=== PATIENT | male | born 1935 | race Caucasian/White ===

== ENCOUNTER → 2024-01-31 08:35 | Outpatient (REF) | payer MEDICARE, OTHER, SELFPAY ==
[2024-01-31 11:48] LABS: Hematocrit 33.2 % (39.0-52.0); Hemoglobin 11.7 g/dL (13.0-18.0); Mean Corp Hgb Conc. 35.2 g/dL (33.0-37.0); Mean Corpuscular Hgb 31.8 pg (27.0-31.0); Mean Corpuscular Volume 90.2 fL (80.0-94.0); Mean Platelet Volume 9.9 fL (7.4-10.4); Platelet Count 276 10^3/uL (130-400); Red Blood Cell Count 3.68 10^6/uL (4.70-6.10); Red Cell Dist. Width 13.4 % (11.5-14.5); White Blood Cell Count 5.5 10^3/uL (4.8-10.8)
[2024-01-31 12:17] LABS: Blood Urea Nitrogen 18 mg/dl (9-20); Calcium 9.5 mg/dl (8.4-10.2); Carbon Dioxide 27 mmol/L (22-30); Chloride 104 mmol/L (98-107); Glucose 101 mg/dl (70-99); Potassium 4.2 mmol/L (3.5-5.1); Sodium 135 mmol/L (135-145); eGFR > 60.00
[2024-01-31 12:42] LABS: PSA, Total - Diagnostic 0.13 ng/ml (0.0-4.0)
[2024-02-02 03:04] LABS: % Free Testosterone 1.5 % (1.6-2.9); Free Testosterone 40 pg/mL (47-244); Sex Hormone Binding Globulin 42 nmol/L (19-76); Total Testosterone 258 ng/dL (300-720)
== END ==
LOC: HWLAB 08:35
PROVIDERS: ATTENDING PHYSICIAN Specialist; FAMILY PHYSICIAN Family Medicine
DX: C61 Malignant neoplasm of prostate (principal); E29.1 Testicular hypofunction
CPT/HCPCS: 36415; 80048; 84153; 84270; 84402; 84403; 85027

== ENCOUNTER → 2024-02-22 19:25 | Outpatient (REF) | payer MEDICARE, OTHER, SELFPAY | LOC: MRI 3T 19:25 | PROVIDERS: ATTENDING PHYSICIAN Physical Medicine & Rehabilitation; FAMILY PHYSICIAN Family Medicine | DX: M54.50 Low back pain, unspecified (principal) | CPT/HCPCS: 72148 ==

== ENCOUNTER → 2024-05-05 08:40 | Outpatient (REF) | payer MEDICARE, OTHER, SELFPAY ==
[2024-05-05 13:44] LABS: PSA, Total - Diagnostic 0.12 ng/ml (0.0-4.0)
[2024-05-07 23:30] LABS: % Free Testosterone 1.4 % (1.6-2.9); Free Testosterone 16 pg/mL (47-244); Sex Hormone Binding Globulin 48 nmol/L (19-76); Total Testosterone 117 ng/dL (300-720)
== END ==
LOC: HWLAB 08:40
PROVIDERS: ATTENDING PHYSICIAN Family Medicine Geriatric Medicine; FAMILY PHYSICIAN Family Medicine
DX: C61 Malignant neoplasm of prostate (principal); Z79.818 Long term (current) use of other agents affecting estrogen receptors and estrogen levels
CPT/HCPCS: 36415; 84153; 84270; 84402; 84403

== ENCOUNTER → 2024-05-08 08:47 | Outpatient (REF) | payer MEDICARE, OTHER, SELFPAY | LOC: RAD 08:47 | PROVIDERS: ATTENDING PHYSICIAN Student in an Organized Health Care Education/Training Program | DX: M79.661 Pain in right lower leg (principal); M25.561 Pain in right knee | CPT/HCPCS: 73564; 93971 ==

== ENCOUNTER → 2024-05-13 10:46 | Outpatient (REF) | payer MEDICARE, OTHER, SELFPAY ==
[2024-05-13 12:01] LABS: % Basophils 0.6 % (0-2); % Eosinophils 2.7 % (0-6); % Immature Granulocytes 0.7 % (0-0.5); % Lymphocytes 17.5 % (20.5-51.1); % Monocytes 8.8 % (1.7-9.3); % Neutrophils 69.7 % (42.2-75.2); Absolute Eosinophils 0.2 10^3/uL (0-0.7); Absolute Immature Granulocytes 0.1 10^3/uL (0-0.05); Absolute Lymphocytes 1.2 10^3/uL (1.2-3.4); Absolute Monocytes 0.6 10^3/uL (0.1-0.6); Absolute Neutrophils 4.9 10^3/uL (1.4-6.5); Hematocrit 33.9 % (39.0-52.0); Hemoglobin 11.8 g/dL (13.0-18.0); Mean Corp Hgb Conc. 34.8 g/dL (33.0-37.0); Mean Corpuscular Hgb 31.5 pg (27.0-31.0); Mean Corpuscular Volume 90.4 fL (80.0-94.0); Mean Platelet Volume 9.7 fL (7.4-10.4); Nucleated Red Blood Cells % 0 % (-); Platelet Count 325 10^3/uL (130-400); Red Blood Cell Count 3.75 10^6/uL (4.70-6.10); Red Cell Dist. Width 13.2 % (11.5-14.5)
== END ==
LOC: HWLAB 10:46
PROVIDERS: ATTENDING PHYSICIAN Nurse Practitioner Adult Health; FAMILY PHYSICIAN Family Medicine
DX: I82.502 Chronic embolism and thrombosis of unspecified deep veins of left lower extremity (principal); D50.9 Iron deficiency anemia, unspecified
CPT/HCPCS: 36415; 85025

== ENCOUNTER 2024-05-14 02:59 | Emergency (ER) | payer MEDICARE, OTHER, SELFPAY ==
--- NOTE | 2024-05-14 03:14 | DOWNTIME ---
There was a [employer] Downtime on 05/14/2024 from 0100 to 05/14/2024 at 0252. Downtime documentation of patient's care, including medication administrations, has been reconciled in the electronic record per guidelines. Refer to the
patient's paper chart under the miscellaneous tab to see printed paper medication records and downtime forms.
[2024-05-14 03:23] VITALS: BP 180/80
--- NOTE | 2024-05-14 03:52 | ED.GENMED ---
History of Present Illness
<CYRUS De Los Santos - Last Filed: 05/14/24 05:36>
General
Chief Complaint: Nose Bleed
Time Seen by Provider: 05/14/24 03:52
History of Present Illness
History of Present Illness:
Pt is a 75 y/o male with PMHx of HTN, HLD, and prostate CA presenting for a nosebleed. He states he was started on Eliquis on Sunday (05/09) due to a DVT in his right leg. He states the following day he got a nose bleed from his right nares. He
states he has a total of 3 nose bleeds between Sunday (05/10) and Sunday (05/11) that last around 45 minutes each. He states he held pressure the entire time and they eventually stopped. He states he discontinued his Eliquis on his own due to these
bleeds. He saw his PCP yesterday and they restarted his Eliquis. He states that he developed another nosebleed from his right nares 45 minutes ago. He states this time it is bleeding more than the previous episodes. He states it is bright red blood
and clots are coming out. He states he just began to develop some weakness, dizziness, and nausea. He denies any trauma to the nose. He denies any headaches, fever, cough, SOB, or chest pain.
Past History
<CYRUS De Los Santos - Last Filed: 05/14/24 05:36>
Past History
ED Past Medical History: Cancer (prostate), GERD, Hypercholesterolemia and Other (Gallstones)
ED Past Surgical History: Other (The Patient has had bilateral shoulder surgery)
Social History
Tobacco: Former smoker (quit 50 yrs ago)
Alcohol: Daily (one glass wine)
Drug: None
Personal:
Living: with family
Employment: Retired
Family History
Family History: Other (Noncontributory)
Phy Exam
<CYRUS De Los Santos - Last Filed: 05/14/24 05:36>
Physical Exam
Physical Exam:
GENERAL: Alert, agitated, in mild distress
Nose: Bright red blood coming from right nostril.
EYE: erythematous conjunctiva. pupils equal and reactive
Throat: Airway intact, no exudates
NECK: Supple, no significant adenopathy.
CARDIAC: Regular rate and rhythm .
LUNGS: Clear breath sounds bilaterally, no acute respiratory distress, no wheezes/rales/rhonchi
ABDOMEN: Soft, nondistended, nontender, no cvat
NEUROLOGICAL: Alert and oriented, no focal neuro deficits
SKIN: Warm and dry, skin intact.
MUSCULOSKELETAL: No edema, well perfused.
PSYCH: Normal and appropriate interaction.
Course
<Shade Diaz [facility] - Last Filed: 05/14/24 05:36>
Vital Signs
Initial and Last Documented VS:
Initial Vital Signs
Pulse Ox
98
05/14/24 03:19
Last Documented Vital Signs
Pulse Resp BP Pulse Ox
57 20 150/80 98
05/14/24 04:59 05/14/24 04:59 05/14/24 04:59 05/14/24 04:59
<Cristopher Polanco DO - Last Filed: 05/14/24 05:40>
Vital Signs
Initial and Last Documented VS:
Initial Vital Signs
Pulse Ox
98
05/14/24 03:19
Last Documented Vital Signs
Pulse Resp BP Pulse Ox
57 20 150/80 98
05/14/24 04:59 05/14/24 04:59 05/14/24 04:59 05/14/24 04:59
Procedures
<Shade Diaz [facility] - Last Filed: 05/14/24 05:36>
Nosebleed
Drug treatment: Epinephrine
Treatment: local pressure applied, Silver nitrate cautery and Merocel packing
Post treatment bleeding: none- good control
<CYRUS De Los Santos - Last Filed: 05/14/24 05:36>
*Pulse Oximetry
Patient hypoxic: no
*EKG
Interpreted by ED Provider?: NA
*Underwriting Technician Interpretation
Rate: Underwriting Technician- N/A
*Critical Care Note
Total Time (30-74mins, 75-104mins- exclusive of procedures): Not Applicable
<CYRUS De Los Santos - Last Filed: 05/14/24 05:36>
Update Note
Update Note:
05/14/24 0400am: Patient asleep resting comfortably after epinephrine nasal spray and merocel sponge placed in right nostril. Merocel with small amount of blood present
05/14/24 0530am: Packing removed, site of bleed identified and cauterized
ED Attending Note
<CYRUS De Los Santos - Last Filed: 05/14/24 05:36>
-
Portions of this chart may have been created with voice recognition software.� Occasional wrong word or��sound alike� substitutions may have occurred due to the inherent limitations of voice recognition software.
<Cristopher Polanco DO - Last Filed: 05/14/24 05:40>
ED Attending Note
Patient seen and examined by attending physician: Yes
I performed the substantive portion of visit, reviewed & personally made and approve the management plan that is documented in note by myself or MEGHAN.: Yes
ED Attending Note:
Pleasant 75-year-old male presents to the Emergency Department with nosebleed. He was started on Eliquis on this past Sunday due to a DVT in his right leg. Patient states that he had 3 nosebleeds in the following days. He stopped his Eliquis on
his own due to the increased frequency of nosebleeding. He was seen by his primary care provider on Sunday who restarted his Eliquis. Patient developed a nosebleed this evening. Denies any trauma. Patient was seen in conjunction with the PA
student. I have reviewed and agree with the history and treatment plan presented. On my independent physical exam, patient is awake, alert, and oriented x3, in minimal acute distress. No respiratory distress. No active bleeding after direct
pressure. Using 1 cc of epinephrine atomized in the right nostril and a Merocel, bleeding has stopped. Will continue to observe.
Discharge Plan
Departure
Patient Disposition: Home (Routine Discharge)
Date of Disposition: 05/14/24
Time of Disposition: 05:39
Patient with high blood pressure during this ER visit?: Yes
Discharge Problem:
Acute anterior epistaxis
Instructions: Nosebleeds (DC), BLOOD PRESSURE
Prescriptions:
No Action
omeprazole 20 MG capsule,delayed release(DR/EC)
20 mg PO Q48H
tamsulosin 0.4 MG capsule
0.4 mg PO DAILY
losartan 50 MG tablet
100 mg PO DAILY
metoprolol succinate 50 MG tablet extended release 24 hr
50 mg PO DAILY
vitamin C21-foqty acid
500 mg PO DAILY
rosuvastatin [Crestor] 5 mg Tablet
5 mg PO HS
cholecalciferol (vitamin D3) [Vitamin D3] 25 mcg (1,000 unit) Tablet
25 mcg PO DAILY
Referrals:
UNKNOWN - PT DOES,NOT KNOW [Family Provider] -
Ang Burgess MD [Active] - Next open appointment
Activity Restrictions/Additional Instructions:
Please discuss resumption of Eliquis with your physician.
It was a pleasure meeting you and taking part in your care. We hope for your continued healing and wellness.
Please read discharge instructions in their entirety. However, they are for general education and may not describe your exact diagnosis at discharge. Information on your ER visit and medical conditions were discussed with you along with appropriate
follow up information...
If indicated, please take your medications as instructed and indicated on discharge paperwork.
Please schedule a follow up appointment as directed. Call to schedule an appointment
Please return to the emergency department with ANY change in, persisting, or worsening of symptoms. If any of your symptoms do not improve, or persist, or become more severe within 6-12 hours, please return to the emergency department for further
care.
Please return to the emergency department if you develop a headache, neck pain/stiffness, fever greater than 100.4F, chest pain, shortness of breath, persistent nausea, vomiting, slurred speech, difficulty walking, numbness/tingling, weakness, signs
of infection or any other symptoms that are worrisome to you.
If you have any questions or concerns please do not hesitate to call the Hospital at or E-mail me directly at [email or web address]
Interventions
Interventions:
*Risk Screen - Suicide Last Done: 05/14/24 02:45
*General Assessment Last Done: 05/14/24 02:45
*Neglect/Abuse Screening Last Done: 05/14/24 02:45
ED- Fall Risk Assessment Last Done: 05/14/24 02:45
*ED COVID-19 Vaccine History Last Done: 05/14/24 02:45
ED-EENT Assessment Last Done: 05/14/24 03:19
Discharge Date and Time
Print Language: CZECH
[2024-05-14 04:59] VITALS: BP 150/80
[2024-05-14 05:56] VITALS: BP 147/73
== END 2024-05-14 05:59 | disposition home or self-care (01) ==
LOC: EMR 02:59
PROVIDERS: EMERGENCY PHYSICIAN Student in an Organized Health Care Education/Training Program
DX: R04.0 Epistaxis (principal); R42 Dizziness and giddiness; R53.1 Weakness; R11.0 Nausea; I82.401 Acute embolism and thrombosis of unspecified deep veins of right lower extremity; K21.9 Gastro-esophageal reflux disease without esophagitis; E78.00 Pure hypercholesterolemia, unspecified; I10 Essential (primary) hypertension; Z85.46 Personal history of malignant neoplasm of prostate; Z87.891 Personal history of nicotine dependence
CPT/HCPCS: 99283; 30901

== ENCOUNTER → 2024-07-21 09:04 | Outpatient (REF) | payer MEDICARE, OTHER, SELFPAY ==
[2024-07-21 12:08] LABS: % Basophils 0.5 % (0-2); % Eosinophils 2.6 % (0-6); % Immature Granulocytes 0.6 % (0-0.5); % Lymphocytes 18.3 % (20.5-51.1); % Monocytes 8.8 % (1.7-9.3); % Neutrophils 69.2 % (42.2-75.2); Absolute Eosinophils 0.2 10^3/uL (0-0.7); Absolute Lymphocytes 1.1 10^3/uL (1.2-3.4); Absolute Monocytes 0.6 10^3/uL (0.1-0.6); Absolute Neutrophils 4.3 10^3/uL (1.4-6.5); Hematocrit 35.6 % (39.0-52.0); Hemoglobin 12.1 g/dL (13.0-18.0); Mean Corpuscular Hgb 31.2 pg (27.0-31.0); Mean Corpuscular Volume 91.8 fL (80.0-94.0); Nucleated Red Blood Cells % 0 % (-); Platelet Count 364 10^3/uL (130-400); Red Blood Cell Count 3.88 10^6/uL (4.70-6.10); Red Cell Dist. Width 13.3 % (11.5-14.5); White Blood Cell Count 6.2 10^3/uL (4.8-10.8)
[2024-07-21 12:17] LABS: Iron 105 ug/dl (49-181)
[2024-07-21 12:26] LABS: Percent Saturation 36 % (20-50); Total Iron Binding Capacity 285 ug/dl (261-462)
[2024-07-21 12:50] LABS: Ferritin 83.4 ng/ml (17.9-464.0)
== END ==
LOC: HWLAB 09:04
PROVIDERS: ATTENDING PHYSICIAN Internal Medicine Hematology & Oncology; FAMILY PHYSICIAN Family Medicine
DX: I82.502 Chronic embolism and thrombosis of unspecified deep veins of left lower extremity (principal); D50.9 Iron deficiency anemia, unspecified
CPT/HCPCS: 36415; 82728; 83540; 83550; 85025

== ENCOUNTER → 2024-08-07 08:44 | Outpatient (REF) | payer MEDICARE, OTHER, SELFPAY ==
[2024-08-07 12:39] LABS: PSA, Total - Diagnostic < 0.06 ng/ml (0.0-4.0)
[2024-08-09 18:01] LABS: % Free Testosterone <1.4 % (1.6-2.9); Free Testosterone <1 pg/mL (47-244); Sex Hormone Binding Globulin 42 nmol/L (19-76); Total Testosterone <3 ng/dL (300-720)
== END ==
LOC: HWLAB 08:44
PROVIDERS: ATTENDING PHYSICIAN Specialist; FAMILY PHYSICIAN Family Medicine
DX: C61 Malignant neoplasm of prostate (principal); R35.1 Nocturia; E29.1 Testicular hypofunction
CPT/HCPCS: 36415; 84153; 84270; 84402; 84403

== ENCOUNTER → 2024-08-12 08:21 | Outpatient (REF) | payer MEDICARE, OTHER, SELFPAY ==
[2024-08-12 13:11] LABS: D-Dimer 0.32 ug/mlFEU (0.00-0.50)
== END ==
LOC: HWLAB 08:21
PROVIDERS: ATTENDING PHYSICIAN Nurse Practitioner Adult Health; FAMILY PHYSICIAN Family Medicine
DX: I82.502 Chronic embolism and thrombosis of unspecified deep veins of left lower extremity (principal); D50.9 Iron deficiency anemia, unspecified
CPT/HCPCS: 36415; 85379

== ENCOUNTER 2024-08-25 17:28 | Emergency (ER) | payer MEDICARE, OTHER, SELFPAY ==
[2024-08-25 17:29] VITALS: BP 165/73
--- NOTE | 2024-08-25 18:22 | ED.GENMED ---
History of Present Illness
General
Chief Complaint: Nose Bleed
Source: patient
Exam Limitations: none
Time Seen by Provider: 08/25/24 18:07
Nursing documentation reviewed up to this point in time: agreed with
History of Present Illness
History of Present Illness:
89-year-old male with history of DVT on Eliquis presents with a nosebleed. He's had several previous nosebleeds and has been cauterized several times. He sees ENT Dr. Bolden as needed. Denies lightheadedness, denies nausea. No trauma.
Past History
Past History
ED Past Medical History: Cancer (prostate), GERD, HTN, Hypercholesterolemia and Other (Gallstones)
ED Past Surgical History: Other (The Patient has had bilateral shoulder surgery)
Social History
Tobacco: Former smoker (quit 50 yrs ago)
Alcohol: Daily (one glass wine)
Drug: None
Personal:
Living: with family
Employment: Retired
Family History
Family History: Other (Noncontributory)
Review of Systems
Review of Systems
Allergies reviewed?: Yes
All Other Systems: ROS reviewed and negative except as documented in HPI and ROS
Constitutional: Denies fever or chills
EENT: Reports other (right side nose bleed)
Respiratory: Denies trouble breathing
ABD/GI: Denies nausea or vomiting
Skin: Reports no symptoms
Phy Exam
Physical Exam
Physical Exam:
GENERAL: No acute distress. A&Ox3.
CONSTITUTIONAL: Afebrile.
EYES: PERRL, conjunctivae normal
ENMT: moist mucus membranes, Pharynx nl, no blood. Dried blood in right nares, no active bleeding currently
RESPIRATORY: Regular respirations, nonlabored, lungs clear.
CARDIOVASCULAR: Regular rate and rhythm, no murmurs, no rubs.
GI: Soft, nontender
MUSCULOSKELETAL: Moves with ease. Well perfused.
SKIN: Warm, dry, pink
PSYCH: Normal mood and affect. Well kept, interactive and appropriate
NEUROLOGIC: Awake, alert and oriented. No focal neurological deficits
Course
Vital Signs
Initial and Last Documented VS:
Initial Vital Signs
Temp Pulse Resp BP Pulse Ox
98 F 65 16 165/73 98
08/25/24 17:29 08/25/24 17:29 08/25/24 17:29 08/25/24 17:29 08/25/24 17:29
Last Documented Vital Signs
Temp Pulse Resp BP Pulse Ox
98 F 65 16 165/73 98
08/25/24 17:29 08/25/24 17:29 08/25/24 17:29 08/25/24 17:29 08/25/24 17:29
Procedures
Nosebleed
Drug treatment: Lidocaine and Epinephrine
Treatment: local pressure applied
Post treatment bleeding: none- good control
Additional information:
Bleeding has stopped, no site of active bleeding identified to cauterize. Pt given no clamp to take home
MDM/Problems Addressed
MDM/Problems Addressed:
89-year-old male with history of DVT on Eliquis presents with a nosebleed. He's had several previous nosebleeds and has been cauterized several times. He sees ENT Dr. Bolden as needed. Denies lightheadedness, denies nausea. No trauma.
No active bleeding currently. Blew nose with little bleeding. Posterior pharynx is without blood.
After cotton soaked with Epinephrine and Lidocaine inserted for 15 minutes, re exam of nasal passages: no active bleeding, no site to cauterize
Pt given nose clamp and instructed on use.
Pt and comfortable going home.
*Critical Care Note
Total Time (30-74mins, 75-104mins- exclusive of procedures): Not Applicable
ED Attending Note
-
Portions of this chart may have been created with voice recognition software.� Occasional wrong word or��sound alike� substitutions may have occurred due to the inherent limitations of voice recognition software.
Discharge Plan
Departure
Patient Disposition: Home (Routine Discharge)
Date of Disposition: 08/25/24
Time of Disposition: 18:43
Patient with high blood pressure during this ER visit?: No
Condition: Good
Discharge Problem:
Right-sided epistaxis
Instructions: Nosebleeds (DC)
Prescriptions:
No Action
omeprazole 20 MG capsule,delayed release(DR/EC)
20 mg PO Q48H
tamsulosin 0.4 MG capsule
0.4 mg PO DAILY
losartan 50 MG tablet
100 mg PO DAILY
metoprolol succinate 50 MG tablet extended release 24 hr
50 mg PO DAILY
vitamin E82-pkshk acid
500 mg PO DAILY
rosuvastatin [Crestor] 5 mg Tablet
5 mg PO HS
cholecalciferol (vitamin D3) [Vitamin D3] 25 mcg (1,000 unit) Tablet
25 mcg PO DAILY
Referrals:
Jose Bolden MD [Active] - As needed
Ez Encarnacion MD [Family Provider] -
Activity Restrictions/Additional Instructions:
As we discussed, there is no active bleeding at this time.
If your nose bleeds again, apply the clamp and leave it on for 20 minutes straight
When you remove it if it is still bleeding, apply the clamp again for another 20 minutes straight
Do this a third time if needed for 20 minutes
If bleeding continues after that you will just have to come back for further treatment.
Gently apply Vaseline into the nostrils to avoid drying out during the winter and when using home heating.
Interventions
Interventions:
*Risk Screen - Suicide Last Done: 08/25/24 17:32
*General Assessment Last Done: 08/25/24 19:10
*Neglect/Abuse Screening Last Done: 08/25/24 17:32
*Nursing Disposition Last Done: 08/25/24 19:10
ED-EENT Assessment Last Done: 08/25/24 19:09
Discharge Date and Time
Discharge Date/Time: 08/25/24 19:11
Print Language: ARMENIAN
== END 2024-08-25 19:11 | disposition home or self-care (01) ==
LOC: EMR 17:28
PROVIDERS: EMERGENCY PHYSICIAN Emergency Medicine; FAMILY PHYSICIAN Family Medicine
DX: R04.0 Epistaxis (principal); I10 Essential (primary) hypertension; E78.00 Pure hypercholesterolemia, unspecified; K21.9 Gastro-esophageal reflux disease without esophagitis; N40.0 Benign prostatic hyperplasia without lower urinary tract symptoms; M19.90 Unspecified osteoarthritis, unspecified site; M48.00 Spinal stenosis, site unspecified; Z79.01 Long term (current) use of anticoagulants; Z90.49 Acquired absence of other specified parts of digestive tract; Z85.46 Personal history of malignant neoplasm of prostate; Z86.718 Personal history of other venous thrombosis and embolism; Z87.891 Personal history of nicotine dependence; Z96.651 Presence of right artificial knee joint
CPT/HCPCS: 99283; 30901

== ENCOUNTER → 2024-09-22 12:43 | Outpatient (REF) | payer MEDICARE, OTHER, SELFPAY | LOC: RAD 12:43 | PROVIDERS: ATTENDING PHYSICIAN Student in an Organized Health Care Education/Training Program | DX: M79.604 Pain in right leg (principal) | CPT/HCPCS: 93925 ==

== ENCOUNTER → 2024-10-07 07:18 | Outpatient (REF) | payer MEDICARE, OTHER, SELFPAY ==
[2024-10-07 09:34] LABS: % Basophils 0.4 % (0-2); % Eosinophils 3.7 % (0-6); % Immature Granulocytes 1.1 % (0-0.5); % Lymphocytes 21.8 % (20.5-51.1); % Monocytes 9.5 % (1.7-9.3); % Neutrophils 63.5 % (42.2-75.2); Absolute Eosinophils 0.2 10^3/uL (0-0.7); Absolute Immature Granulocytes 0.1 10^3/uL (0-0.05); Absolute Lymphocytes 1.2 10^3/uL (1.2-3.4); Absolute Monocytes 0.5 10^3/uL (0.1-0.6); Absolute Neutrophils 3.6 10^3/uL (1.4-6.5); Hematocrit 34.7 % (39.0-52.0); Hemoglobin 11.5 g/dL (13.0-18.0); Mean Corp Hgb Conc. 33.1 g/dL (33.0-37.0); Mean Corpuscular Hgb 31.1 pg (27.0-31.0); Mean Corpuscular Volume 93.8 fL (80.0-94.0); Mean Platelet Volume 9.6 fL (7.4-10.4); Nucleated Red Blood Cells % 0 % (-); Platelet Count 378 10^3/uL (130-400); Red Cell Dist. Width 13.4 % (11.5-14.5); White Blood Cell Count 5.7 10^3/uL (4.8-10.8)
[2024-10-07 10:01] LABS: HDL Cholesterol 52 mg/dl; Iron 102 ug/dl (49-181); LDL Cholesterol, Calculated 80 mg/dl; Total Cholesterol 153 mg/dl (50-199); Triglyceride 105 mg/dl (10-149); Very Low Density Lipoprotein 21 mg/dl (0-30)
[2024-10-07 10:05] LABS: D-Dimer 0.42 ug/mlFEU (0.00-0.50)
[2024-10-07 10:11] LABS: Percent Saturation 34 % (20-50); Total Iron Binding Capacity 298 ug/dl (261-462)
[2024-10-07 10:32] LABS: Ferritin 80.8 ng/ml (17.9-464.0)
== END ==
LOC: HWLAB 07:18
PROVIDERS: ATTENDING PHYSICIAN Internal Medicine Hematology & Oncology; FAMILY PHYSICIAN Family Medicine
DX: I70.0 Atherosclerosis of aorta (principal); E78.2 Mixed hyperlipidemia; I82.502 Chronic embolism and thrombosis of unspecified deep veins of left lower extremity; D50.9 Iron deficiency anemia, unspecified
CPT/HCPCS: 36415; 80061; 82728; 83540; 83550; 85025; 85379

== ENCOUNTER → 2024-11-14 10:10 | Outpatient (REF) | payer MEDICARE, OTHER, SELFPAY | LOC: HWLAB 10:10 | PROVIDERS: ATTENDING PHYSICIAN Specialist; FAMILY PHYSICIAN Family Medicine | DX: I10 Essential (primary) hypertension (principal) | CPT/HCPCS: 36415; 82384; 83835 ==

== ENCOUNTER → 2024-12-02 09:05 | Outpatient (REF) | payer MEDICARE, OTHER, SELFPAY | LOC: HWLAB 09:05 | PROVIDERS: ATTENDING PHYSICIAN Specialist; FAMILY PHYSICIAN Family Medicine | DX: I10 Essential (primary) hypertension (principal); E78.2 Mixed hyperlipidemia; D64.9 Anemia, unspecified; D50.9 Iron deficiency anemia, unspecified | CPT/HCPCS: 81050; 82384 ==

== ENCOUNTER → 2025-02-03 10:11 | Outpatient (REF) | payer MEDICARE, OTHER, SELFPAY ==
[2025-02-03 14:02] LABS: Blood Urea Nitrogen 19 mg/dl (9-20); Calcium 9.5 mg/dl (8.4-10.2); Carbon Dioxide 24 mmol/L (22-30); Chloride 109 mmol/L (98-107); Glucose 93 mg/dl (70-99); Potassium 4.6 mmol/L (3.5-5.1); Sodium 140 mmol/L (135-145); eGFR > 60.00
== END ==
LOC: HWLAB 10:11
PROVIDERS: ATTENDING PHYSICIAN Specialist; FAMILY PHYSICIAN Family Medicine
DX: I10 Essential (primary) hypertension (principal)
CPT/HCPCS: 36415; 80048

== ENCOUNTER → 2025-02-10 09:47 | Outpatient (REF) | payer MEDICARE, OTHER, SELFPAY ==
[2025-02-10 12:40] LABS: PSA, Total - Diagnostic < 0.06 ng/ml (0.0-4.0)
[2025-02-12 04:45] LABS: % Free Testosterone 1.5 % (1.6-2.9); Free Testosterone 1 pg/mL (47-244); Sex Hormone Binding Globulin 41 nmol/L (19-76); Total Testosterone 7 ng/dL (300-720)
== END ==
LOC: HWLAB 09:47
PROVIDERS: ATTENDING PHYSICIAN Specialist; FAMILY PHYSICIAN Family Medicine
DX: C61 Malignant neoplasm of prostate (principal); R35.1 Nocturia; E29.1 Testicular hypofunction
CPT/HCPCS: 36415; 84153; 84270; 84402; 84403

== ENCOUNTER → 2025-04-13 12:45 | Outpatient (REF) | payer MEDICARE, OTHER, SELFPAY ==
[2025-04-13 16:03] LABS: Blood Urea Nitrogen 20 mg/dl (9-20); Calcium 9.3 mg/dl (8.4-10.2); Carbon Dioxide 24 mmol/L (22-30); Chloride 105 mmol/L (98-107); Glucose 114 mg/dl (70-99); Potassium 4.4 mmol/L (3.5-5.1); Sodium 136 mmol/L (135-145); eGFR > 60.00
[2025-04-13 16:12] LABS: Hematocrit 31.5 % (39.0-52.0); Hemoglobin 10.9 g/dL (13.0-18.0); Mean Corp Hgb Conc. 34.6 g/dL (33.0-37.0); Mean Corpuscular Volume 90.0 fL (80.0-94.0); Nucleated Red Blood Cells % 0 % (-); Platelet Count 341 10^3/uL (130-400); Red Cell Dist. Width 13.3 % (11.5-14.5)
[2025-04-13 16:13] LABS: Total Iron Binding Capacity 266 ug/dl (261-462)
[2025-04-13 16:38] LABS: Ferritin 84.7 ng/ml (17.9-464.0)
== END ==
LOC: HWLAB 12:45
PROVIDERS: ATTENDING PHYSICIAN Internal Medicine Hematology & Oncology; FAMILY PHYSICIAN Family Medicine
DX: I82.502 Chronic embolism and thrombosis of unspecified deep veins of left lower extremity (principal); D50.9 Iron deficiency anemia, unspecified
CPT/HCPCS: 36415; 80048; 82728; 83550; 85025

== ENCOUNTER → 2025-07-14 10:34 | Outpatient (REF) | payer MEDICARE, OTHER, SELFPAY ==
[2025-07-14 12:53] LABS: Hematocrit 33.8 % (39.0-52.0); Hemoglobin 11.3 g/dL (13.0-18.0); Mean Corp Hgb Conc. 33.4 g/dL (33.0-37.0); Mean Corpuscular Volume 91.1 fL (80.0-94.0); Nucleated Red Blood Cells % 0 % (-); Platelet Count 385 10^3/uL (130-400); Red Cell Dist. Width 13.5 % (11.5-14.5)
[2025-07-14 13:06] LABS: Iron 97 ug/dl (49-181)
[2025-07-14 13:09] LABS: D-Dimer 0.64 ug/mlFEU (0.00-0.50)
[2025-07-14 13:17] LABS: Total Iron Binding Capacity 292 ug/dl (261-462)
[2025-07-14 13:41] LABS: Ferritin 54.9 ng/ml (17.9-464.0)
== END ==
LOC: HWLAB 10:34
PROVIDERS: ATTENDING PHYSICIAN Internal Medicine Hematology & Oncology; FAMILY PHYSICIAN Family Medicine
DX: I82.502 Chronic embolism and thrombosis of unspecified deep veins of left lower extremity (principal); D50.9 Iron deficiency anemia, unspecified
CPT/HCPCS: 36415; 82728; 83540; 83550; 85025; 85379

== ENCOUNTER → 2025-08-24 09:16 | Outpatient (REF) | payer MEDICARE, OTHER, SELFPAY ==
[2025-08-24 10:18] LABS: D-Dimer 0.83 ug/mlFEU (0.00-0.50)
[2025-08-24 11:05] LABS: PSA, Total - Diagnostic < 0.06 ng/ml (0.0-4.0)
== END ==
LOC: REG 09:16
PROVIDERS: ATTENDING PHYSICIAN Internal Medicine Hematology & Oncology; FAMILY PHYSICIAN Specialist
DX: I82.502 Chronic embolism and thrombosis of unspecified deep veins of left lower extremity (principal); D50.9 Iron deficiency anemia, unspecified; C61 Malignant neoplasm of prostate
CPT/HCPCS: 36415; 84153; 85379

== ENCOUNTER → 2025-09-21 08:27 | Outpatient (REF) | payer MEDICARE, OTHER, SELFPAY ==
[2025-09-21 10:17] LABS: D-Dimer 0.91 ug/mlFEU (0.00-0.50)
== END ==
LOC: HWLAB 08:27
PROVIDERS: ATTENDING PHYSICIAN Internal Medicine Hematology & Oncology; FAMILY PHYSICIAN Family Medicine
DX: I82.502 Chronic embolism and thrombosis of unspecified deep veins of left lower extremity (principal); D50.9 Iron deficiency anemia, unspecified
CPT/HCPCS: 36415; 85379